=== PATIENT | male | born 1945 | race Caucasian/White ===

== ENCOUNTER → 2017-09-28 09:00 | Outpatient (CLI) | payer MEDICARE, SELFPAY ==
--- NOTE | 2017-09-28 09:04 | RDU_ITS ---
Reason For Study: HYPERTENSION Right Renal Artery Left Renal Artery Right renal artery ostium 98.7/20.1 Left renal artery ostium 92.1/22.8 RSV/EDV. PSV/EDV. Right renal artery proximal Left renal artery proximal PSV/EDV 118.0/25.5 PSV/EDV. 124.0/24.6 . Right renal artery mid 118.0/20.1 Left renal artery mid 118.0/24.6 PSV/EDV. PSV/EDV . Right renal artery distal Left renal artery distal 104.0/21.0 103.0/20.2 PSV/EDV. PSV/EDV. Right Renal Parenchyma Left Renal Parenchyma Upper Pole Medula 37.8/10.9 Left upper pole medulla 34.2/6.4 PSV/EDV. PSV/EDV . Right upper pole medulla EDR .29 . Left upper pole medulla EDR .19 . Right upper pole medulla R.I. .71 . Left upper pole medulla R.I. .81 . Upper Juan Cortx 29.3/7.3 PSV/EDV. UP Cortex 17.2/3.7 PSV/EDV. Right upper pole cortex EDR .25 . Left upper pole cortex EDR .22 . Right upper pole cortex R.I. .75 . Left upper pole cortex R.I. .78 . Right lower Pole medulla 35.1/6.4 Left lower Pole medulla 23.1/5.7 PSV/EDV . PSV/EDV . Right lower pole medulla EDR .18 . Left lower pole medulla EDR .25 . Right lower pole medulla R.I. .82 . Left lower pole medulla R.I. .75 . Lower Pole Cortex 17.7/5.2 PSV/EDV. Lower Pole Cortx 16.1/4.3 PSV/EDV. Right lower pole cortex EDR .29 . Left lower pole cortex EDR .27 . Right lower pole cortex R.I. .71 . Left lower pole cortex R.I. .74 . Right Renal Hilar Left Renal Hilar Right Hilar avg 44.6/9.5 PSV/EDV. LT Hilar avg 57.5/9.1 PSV/EDV . Right hilar acceleration time 51 Left hilar acceleration time 59 m/sec. m/sec. Right Renal Dimensions Left Renal Dimensions Right kidney size 10.8 cm . Left kidney size 11.2 cm . Right cortical dimension 1.6 cm . Left cortical dimension 1.4 cm . Cyst noted upper pole 3.2 x 2.9 cm. Aorta Proximal abdominal aorta 1.7 X 1.7 cm . Distal abdominal aorta 1.3 X 1.3 cm . Proximal abdominal aorta peak systolic velocity is 109.0 cm/sec . Distal abdominal aorta peak systolic velocity is 98.5 cm/sec . Interpretation Summary Dimensions of the intra-abdominal aorta appear normal, without evidence of aneurysmal dilatation. Renal artery velocities are bilaterally normal. Acceleration times are normal bilaterally. There is no evidence of hemodynamically significant renal artery stenosis on either side. Renovascular resistance appears to be bilaterally elevated . The right cortical dimension is increased. The left cortical dimension is normal. Kidneys appear normal in size bilaterally. A cystic structure is noted in the upper pole of the left kidney, measuring 3.2 cm x 2.9 cm. Clinical correlation is advised. Ordering Physician: Cady Diaz Referring Physician: Cady Diaz Performed By: Monica Young RVT
== END ==
PROVIDERS: Family Provider Internal Medicine; PCP Internal Medicine; Visit Provider Internal Medicine
DX: I10 Essential (primary) hypertension (principal)
CPT/HCPCS: 93975

== ENCOUNTER → 2017-10-17 13:38 | Outpatient (CLI) | payer MEDICARE, SELFPAY ==
--- NOTE | 2017-10-17 13:43 | US_ITS ---
STUDY: RENAL ULTRASOUND - COMPLETE REASON FOR EXAM: Male, 72 years old. Evaluation of left renal cyst. TECHNIQUE: Ultrasound evaluation of the kidneys was performed with real-time and static guerra-scale imaging. COMPARISON: None. FINDINGS: RIGHT KIDNEY: Normal location of the right kidney, which is normal in size. The right kidney measures 11.0 x 5.8 x 5.6 cm. There is a normal cortex of the right kidney. The renal cortex measures 1.7 cm. There is no right renal mass or cyst. Multiple echogenic foci of the right kidney. There is no right hydronephrosis. DISTAL RIGHT URETER: There is non-visualization of the distal right ureter. There is no demonstrated right ureterovesical junction calculus. There is a visualized right ureteral jet. LEFT KIDNEY: Normal location of the left kidney, which is normal in size. The left kidney measures 11.8 x 6.1 x 5.9 cm. There is a normal cortex of the left kidney. The renal cortex measures 1.7 cm. 2.9 x 2.4 x 3.2 cm simple cyst of the left kidney. Multiple echogenic foci. There is no left hydronephrosis. BLADDER: The distended urinary bladder has a volume of 366 ml. There is a normal wall thickness of the distended urinary bladder. There is no demonstrated mass within the urinary bladder. There are no demonstrated bladder calculi. US/Kidney and Bladder IMPRESSION: Normal size of the kidneys bilaterally. Negative for hydronephrosis. 2.9 x 2.4 x 3.2 cm simple cyst of the left kidney. Multiple echogenic foci bilaterally potential renal stones versus vascular calcifications. Electronically Signed: Anahi Monterroso MD at 22:19 EST , Service support ,
== END ==
PROVIDERS: Family Provider Internal Medicine; PCP Internal Medicine; Visit Provider Urology
DX: N28.1 Cyst of kidney, acquired (principal)
CPT/HCPCS: 76770

== ENCOUNTER → 2020-09-29 08:11 | Outpatient (CLI) | payer MEDICARE, SELFPAY ==
--- NOTE | 2020-09-29 08:16 | CDU_ITS ---
Reason For Study: Bruit Rt. Velocities/BP Lt. Velocities/BP Prox CCA 128.4/15.2 cm/sec. Prox CCA 84.9/13.5 cm/sec. Mid CCA 56.9/12.6 cm/sec. Mid CCA 75/14.6 cm/sec. Dist CCA 64.2/16.3 cm/sec. Dist CCA 75/17.9 cm/sec. Prox ICA 59.7/13.5 cm/sec. Prox ICA 59.7/20.1 cm/sec. Mid ICA 82.7/26.7 cm/sec. Mid ICA 92.6/23.4 cm/sec. Dist ICA 67.8/21.4 cm/sec. Dist ICA 83.9/28.9 cm/sec. Rt. ICA/CCA = 1.3. Lt. ICA/CCA = 1.2. Prox ECA 81.4/9 cm/sec. Prox ECA 81.6/8 cm/sec. Rt. Vert. 59.7/17.9 cm/sec. Lt. Vert. 60.8/12.4 cm/sec. Right Extracranial There is intimal thickening but no significant atherosclerotic plaque noted in the right common carotid artery. There is heterogeneous, irregular atherosclerotic plaque noted in the right internal carotid artery. The atherosclerotic plaque causes acoustic shadowing. There is intimal thickening but no significant atherosclerotic plaque noted in the right external carotid artery. Antegrade flow is noted in the right vertebral artery. Left Extracranial There is intimal thickening but no significant atherosclerotic plaque noted in the left common carotid artery. There is heterogeneous, irregular atherosclerotic plaque noted in the left internal carotid artery. The atherosclerotic plaque causes acoustic shadowing. There is intimal thickening but no significant atherosclerotic plaque noted in the left external carotid artery. Antegrade flow is noted in the left vertebral artery. Procedure Carotid Duplex 45665. This is a Carotid Duplex examination using B-mode, color flow and specral Doppler. Exam performed in department. Interpretation Summary Mild (<50%) stenosis right extracranial internal carotid. Mild (<50%) stenosis left extracranial internal carotid. Flow within the vertebral arteries is antegrade bilaterally. Ordering Physician: Cady Diaz Referring Physician: Cady Diaz M.D. Performed By: Kristine Muñoz RVT
--- NOTE | 2020-09-29 08:16 | ECHOCS_ITS ---
Reason For Study: Aortic Stenosis Procedure This was a 2D Doppler, Color Flow transthoracic echocardiogram. The study was technically difficult. Contrast injection was performed. Exam performed in department. Left Ventricle Normal LV size. Left ventricular systolic function is normal. The estimated ejection fraction is 65 %. No evidence for diastolic dysfunction. No regional wall motion abnormalities noted. Right Ventricle Normal RV size. Normal systolic function. Atria The left atrium is mildly enlarged. Normal right atrium. No doppler evidence for ASD. Mitral Valve There is no mitral annular calcification. Normal mitral valve. Trivial mitral valve insufficiency. Tricuspid Valve Normal tricuspid valve. Trivial tricuspid valve insufficiency. Right ventricular systolic pressure estimated to be 32 mmHg. Aortic Valve 2D echocardiographic images demonstrate a moderately to severely diffusely thickened and calcified and partially restricted aortic valve with a possible fused raphae, thus, a bicuspid aortic valve cannot necessarily be excluded. Severe aortic stenosis. Trivial aortic valve insufficiency. Pulmonic Valve The pulmonic valve is not well visualized. Trivial eccentric pulmonic valve insufficiency. Great Vessels Normal sized aortic root. Pericardium/Pleural No pericardial effusion. Medication 22 gauge I.V. with prn adaptor inserted into left arm. Diluted definity 2ml given slow IV push to enhance endocardial definition. MMode/2D Measurements & Calculations LVIDd: 4.7 cm IVSd: 1.3 cm LVOT diam: 2.0 cm LVIDs: 2.7 cm LVPWd: 1.1 cm RVDd: 3.3 cm FS: 42.3 % LVOT area: 3.0 cm2 Ao root diam: 3.1 cm LAV(MOD-bp): 42.7 ml LA A4 area: 15.1 cm2 LAV(MOD-bp) Indexed: 23.2 ml/m2 LAV(MOD-sp2): 43.4 ml LAV(MOD-sp4): 37.6 ml RA A4 area: 10.8 cm2 Time Measurements MV dec time: 0.30 sec Doppler Measurements & Calculations MV E max samuel: 63.1 cm/sec Lat Peak E' Samuel: 6.5 cm/sec Med Peak E' Samuel: 5.4 cm/sec MV A max samuel: 97.6 cm/sec E/E' lat: 9.8 E/E' med: 11.8 MV E/A: 0.65 MV V2 max: 99.0 cm/sec MV P1/2t max samuel: 69.9 cm/sec Ao V2 max: 449.5 cm/sec MV max P.9 mmHg MV P1/2t: 85.5 msec Ao max P.9 mmHg MV V2 mean: 48.1 cm/sec MV dec slope: 239.3 cm/sec2 Ao V2 mean: 318.8 cm/sec MV mean P.1 mmHg Ao mean P.6 mmHg MV V2 VTI: 25.1 cm MVA(P1/2t): 2.6 cm2 Ao V2 VTI: 115.2 cm MVA(VTI): 2.3 cm2 GEOVANI(I,D): 0.51 cm2 GEOVANI(V,D): 0.50 cm2 AI max samuel: 432.4 cm/sec LV V1 max: 73.2 cm/sec SV(LVOT): 58.6 ml AI max P.8 mmHg LV V1 max P.1 mmHg AI dec slope: 202.8 cm/sec2 LV V1 mean P.1 mmHg AI P1/2t: 624.4 msec LV V1 mean: 47.4 cm/sec LV V1 VTI: 19.3 cm PA V2 max: 110.7 cm/sec TR max samuel: 270.1 cm/sec TR max P.2 mmHg Interpretation Summary The study was technically difficult. Contrast injection was performed. Left ventricular systolic function is normal. The estimated ejection fraction is 65 %. The left atrium is mildly enlarged. Trivial mitral valve insufficiency. Trivial tricuspid valve insufficiency. 2D echocardiographic images demonstrate a moderately to severely diffusely thickened and calcified and partially restricted aortic valve with a possible fused raphae, thus, a bicuspid aortic valve cannot necessarily be excluded. Severe aortic stenosis. Trivial eccentric pulmonic valve insufficiency. Right ventricular systolic pressure estimated to be 32 mmHg. No evidence for diastolic dysfunction. Ordering Physician: Cady Diaz Referring Physician: Cady Diaz M.D. Performed By: Justyn Gaines RCS
== END ==
PROVIDERS: PCP Internal Medicine; Visit Provider Internal Medicine
DX: I35.0 Nonrheumatic aortic (valve) stenosis (principal); R09.89 Other specified symptoms and signs involving the circulatory and respiratory systems
CPT/HCPCS: 93306; 93880; Q9957; A4216; C8929

== ENCOUNTER 2020-11-23 08:19 | Day surgery (SDC) | payer MEDICARE, SELFPAY ==
[2020-11-18 13:02] VITALS: BMI 29.0
--- NOTE | 2020-11-18 14:23 | RAD_ITS ---
STUDY: X-RAY CHEST REASON FOR EXAM: Male, 75 years old. shortness of breath TECHNIQUE: PA and lateral views of the chest. COMPARISON: 10/02/2016 FINDINGS: The lungs are clear and expanded. There is no demonstrated pleural abnormality. Normal size heart. Normal mediastinum and mil[place]. Normal visualized pulmonary arteries. Normal visualized aortic arch and descending thoracic aorta. There are diffuse degenerative changes of the visualized thoracic spine. Normal visualized ribs, clavicles, and shoulders. There is no demonstrated abnormality of the visualized soft tissue structures of the upper abdomen. RAD/Chest PA and Lateral IMPRESSION: No acute cardiopulmonary process. Electronically Signed: Scottie Goddard MD ([place]) at 17:40 EDT , Service support ,
[2020-11-18 15:11] LABS: Absolute Lymphocyte Count 1.32 X10^3/uL (0.83-4.51); Absolute Neutrophil Count 4.2 X10^3/uL (2.0-7.7); Basophil# 0.04 X10^3/uL; Basophil% 0.6 % (0-1); Eosinophil# 0.09 X10^3/uL; Eosinophils% 1.4 % (0-5); Hematocrit 44.4 % (40-54); Hemoglobin 14.6 g/dL (13.0-16.5); Lymphocyte # 1.32 X10^3/ul (4.0); Lymphocyte % 21.2 % (19-41); Mean Corp Hgb Conc 32.9 g/dL (32-36); Mean Corpuscular Hgb 29.4 pg (27.0-32.0); Mean Corpuscular Volume 89.5 fL (80-94); Mean Platelet Vol. 10.5 fl (6.2-12.0); Monocyte# 0.52 X10^3/uL; Monocyte% 8.3 % (0-10); NRBC Flagged by Analyzer 0 % (0-5); Neutrophil # 4.24 X10^3/uL (2.7-7.7); Platelet Count 209 K/mm3 (150-450); RBC Distribution Width CV 13.2 % (11.6-14.6); RBC Distribution Width SD 42.8 fl (35.1-43.9); Red Blood Count 4.96 M/mm3 (4.6-6.2); White Blood Count 6.2 K/mm3 (4.4-11.0)
[2020-11-18 15:31] LABS: Partial Thromboplast Time 26.3 Seconds (24.1-36.2); Prothrombin Time (Protime)PT. 12.3 SECONDS (11.7-14.9)
[2020-11-18 15:53] LABS: Anion Gap 7 (5-15); BUN 21 mg/dL (7-18); BUN/Creat Ratio 18.8 RATIO (10-20); Calcium,Total 9.3 mg/dL (8.5-10.1); Chloride 102 mmol/L (98-107); Creatinine, Serum 1.12 mg/dL (0.70-1.30); EST Glomerular Filtration Rate 68 mL/min (>60); Est Glom Filt Rate - Afr Amer 82 mL/min (>60); Glucose 97 mg/dL (74-106); Potassium 3.8 mmol/L (3.5-5.1); Sodium Level 138 mmol/L (136-145)
[2020-11-22 09:52] VITALS: BMI 29.0
--- NOTE | 2020-11-22 17:47 | HP.PCM_ITS ---
Problem List (1) Nonrheumatic aortic (valve) stenosis Status: Chronic Comment: Severe per ECHO 09/29/20 (2) Mixed hyperlipidemia Status: Chronic (3) Essential hypertension Status: Chronic (4) Dyspnea on exertion Status: Acute History and Physical Date of Admission: 11/23/20 [facility] [address] [place] [address] OFFICE VISIT Date of Service: 11/18/20 MR#: [id number] Acct: [id number] Name: MIGUELINA ESPOSITO Jr. Rep #: [id number] : 1945 Provider: Dr. Nigel Kendrick MD Age/Sex: 75/M Location: [facility] Status: Signed HPI HPI History of Present Illness Surgical H&P: Yes Details: This is a 75-year-old white male who is referred for evaluation of shortness of breath/dyspnea on exertion and severe aortic valve stenosis. He has a history of underlying carotid artery disease-mild, hyperlipidemia, and hypertension. He states for some time now he has been progressively short of breath and dyspneic with exertion. He will stop and rest and feel better. He has not had associated chest discomfort nor has he had any obvious evidence of orthopnea or PND or peripheral pitting edema. There has been no near syncope or syncope. He had an ECG by his PCP in September this year. It demonstrated sinus rhythm with left axis deviation with a possible left anterior fascicular block and poor R wave progression as well as the appearance of nonspecific ST segment abnormality. He had a carotid artery duplex study performed in September of this year. The results are as noted below. He had a transthoracic echocardiogram performed in September of this year as well. The results are as noted below. Of note he has had remote chest CT scans and renal artery duplex studies. The results of the studies are noted below. Intake Vital Signs 11/18/20 BP 156/78 H 11/18/20 Blood Pressure Location Rt brachial 11/18/20 Position Sitting 11/18/20 Height 5 ft 6 in 11/18/20 Weight: 180 lb 11/18/20 BMI 29.0 11/18/20 BP 166/78 H 11/18/20 Blood Pressure Location Lt brachial 11/18/20 Position Sitting 11/18/20 Respiration 16 11/18/20 Pulse 68 11/18/20 Pulse Source Auscultation Intake Visit Reasons: SOB on exertion/ Ref. Joe Brokerage Manager Required: No Accompanied by: None Is patient in pain?: No Allergies pravastatin Adverse Reaction (Intermediate, Verified 11/18/20 13:12) muscle pains rosuvastatin Adverse Reaction (Intermediate, Verified 11/18/20 13:12) muscle pains simvastatin Adverse Reaction (Intermediate, Verified 11/18/20 13:12) muscle pains Medications amlodipine 5 mg tablet 5 mg PO DAILY 11/01/20 [History Confirmed 11/18/20] aspirin 325 mg tablet 325 mg PO DAILY 11/01/20 [History Confirmed 11/18/20] cholecalciferol (vitamin D3) 50 mcg (2,000 unit) tablet 50 mcg PO DAILY 11/01/20 [History Confirmed 11/18/20] hydrochlorothiazide 12.5 mg tablet 12.5 mg PO DAILY 11/01/20 [History Confirmed 11/18/20] loratadine 10 mg tablet 10 mg PO DAILY PRN 11/01/20 [History Confirmed 11/18/20] losartan 100 mg tablet 100 mg PO DAILY 11/01/20 [History Confirmed 11/18/20] metoprolol tartrate 25 mg tablet 25 mg PO BID 11/01/20 [History Confirmed 11/18/20] atorvastatin 40 mg tablet 40 mg PO QHS 11/18/20 [History Confirmed 11/18/20] citalopram 10 mg tablet 10 mg PO QHS tablet 11/18/20 [History Confirmed 11/18/20] tamsulosin 0.4 mg capsule 0.4 mg PO QHS 11/18/20 [History Confirmed 11/18/20] zinc 50 mg tablet 50 mg PO DAILY 11/18/20 [History Confirmed 11/18/20] Ejection fraction %: 65 to 70 [facility] Medical History Dyspnea on exertion (Acute) Bilateral carotid bruits (Acute) Bilateral carotid artery stenosis (Chronic) Nonrheumatic aortic (valve) stenosis (Chronic) Mixed hyperlipidemia (Chronic) Essential hypertension (Chronic) Cyst of left kidney (Acute) BPH (benign prostatic hyperplasia) (Chronic) Gout (Chronic) Community acquired pneumonia (Resolved) Surgical History salivary gland removal (Resolved) Family History Father Myocardial infarction, Onset Age: 69 Mother Cancer Breast Social History (Updated 11/18/20 @ 13:[address] Nigel Kendrick MD) Smoking Status: Never smoker alcohol intake: current details: 2 beers daily substance use type: does not use caffeine: Yes Type: coffee Number of servings: 6 ROS Const Const: Positive for fatigue, weakness and daytime sleepiness; negative for headache(s), frequent falls, difficulty sleeping or excessive sweating Eyes Eyes: Negative for loss of peripheral vision, transient loss of vision, blurry vision, double vision or tunnel vision ENT ENT: Negative for headache(s), dizziness, Nosebleed/epistaxis or balance problems Cardio Chest Pain: No Palpitations: No Edema: Bilateral (Resolved with HCTZ) Muscle aches with walking: None Resp Respiratory: Positive for SOB with activity; negative for SOB at rest, SOB orthopnea\SOB lying down, Cough or paroxysmal nocturnal dyspnea GI GI: Negative nausea, vomiting, heartburn or black,tarry stools : Negative for hematuria Musc Musc: Negative for muscle aches/ myalgia, muscle weakness, joint pain or balance problems Skin Skin: Negative non-healing lesions, rash or unusual bruising Neuro Neuro: Positive for lightheadedness and weakness; negative for dizziness, near syncope, syncope, frequent falls, headache(s), blurry vision, double vision or lack of coordination Harish Hematologic/Lymphatic: Negative for easy bleeding or easy bruising Endo Endo: Positive for fatigue; negative for excessive sweating or increased thirst/drinking Psych Psych: Negative for anxiety or depression Allergy Allergy/Immunology: Negative for hives, Negative for rash Cardiology Exam Const Appearance: cooperative, healthy appearing, comfortable, no acute distress, well developed and well groomed Nutritional Appearance: average body habitus Orientation: alert, awake and oriented x3 Head Head: normal to inspection, normocephalic and atraumatic Ears: hearing grossly normal bilaterally Nose: external nose normal Face and Sinus: face symmetric Eyes General: appearance normal, both eyes and all related structures Eyelids: eyelids normal Conjunctivae: conjunctivae normal Pupils: PERRL EOM: EOM intact bilaterally Neck Neck: normal visual inspection and full ROM Carotids: delayed carotid upstroke Chest Chest inspection: normal inspection of the chest, symmetric chest movement and normal respiratory effort Auscultation: Bilateral: Clear to Auscultation Cardio Palpation: normal PMI Rate: regular rate Rhythm: regular rhythm Heart sounds: S1 normal and diminished A2 Murmur: Grade 3/6, harsh and crescendo-decrescendo GI GI: normal to inspection, soft and bowel sounds present Neuro General: alert, awake, oriented x3 and moves all extremities Skin Skin: no rashes or lesions noted Extremities Pulses: Normal: Right Radial Pulse, Left Radial Pulse Lower Extremity Edema: None: Bilateral Psych Psychological: normal affect Assessment & Plan 1. Nonrheumatic aortic (valve) stenosis I35.0 Severe per ECHO 09/29/20 Plan At the present time he does have what appears to be severe aortic valve stenosis based upon his echocardiographic studies. This can contribute to his shortness of breath/dyspnea. At the present time it was felt he should be further evaluated for his severe aortic valve stenosis in preparation for a tertiary care center evaluation for aortic valve replacement. This evaluation would include a chest x-ray as well as a diagnostic cardiac catheterization to evaluate for any obvious angiographically significant CAD that would contribute to his symptoms and alter the way his aortic valve is replaced. Hopefully if he does not have any angiographically significant CAD he could be referred for a TAVR procedure. Orders Orders: 12 Lead EKG performed by BMS Today Left Heart Cath/COR/LV Percut Today Basic Metabolic Profile (BMP) Today Partial Thromboplast Time Today Prothrombin Time w/INR Today CBC W/Diff, Automated Today Chest PA and Lateral Today 2. Bilateral carotid artery stenosis I65.23 Mild per duplex study 09/29/20 Plan He does have an element of carotid artery stenosis. He will need to continue risk factor evaluation care as deemed appropriate. Orders Orders: 12 Lead EKG performed by BMS Today Left Heart Cath/COR/LV Percut Today Basic Metabolic Profile (BMP) Today Partial Thromboplast Time Today Prothrombin Time w/INR Today CBC W/Diff, Automated Today Chest PA and Lateral Today 3. Mixed hyperlipidemia E78.2 Plan He does have an element of hyperlipidemia. He will continue medical management. Orders Orders: 12 Lead EKG performed by BMS Today Left Heart Cath/COR/LV Percut Today Basic Metabolic Profile (BMP) Today Partial Thromboplast Time Today Prothrombin Time w/INR Today CBC W/Diff, Automated Today Chest PA and Lateral Today 4. Essential hypertension I10 Plan He has blood pressure during his PCP visit in September of this year appeared to be reasonably well controlled with a blood pressure of 138/80 mmHg. He states is elevated today because he is sitting in this office today. He notes usually his blood pressure is much better controlled. Orders Orders: 12 Lead EKG performed by BMS Today Left Heart Cath/COR/LV Percut Today Basic Metabolic Profile (BMP) Today Partial Thromboplast Time Today Prothrombin Time w/INR Today CBC W/Diff, Automated Today Chest PA and Lateral Today 5. Dyspnea on exertion R06.00 Plan His shortness of breath/dyspnea may be related to his aortic valve stenosis. However again he needs to be evaluated for any obvious underlying CAD as well as any obvious pulmonary related issues that would contribute to such symptoms and findings. Thus he will proceed with a evaluation as noted. Orders Orders: 12 Lead EKG performed by BMS Today Left Heart Cath/COR/LV Percut Today Basic Metabolic Profile (BMP) Today Partial Thromboplast Time Today Prothrombin Time w/INR Today CBC W/Diff, Automated Today Chest PA and Lateral Today Plan Detail Additional Comments The above was discussed with the patient. The cardiac catheterization procedure and risks were discussed with the patient. He was agreeable to this approach. Follow Up 3 Months (PFM) Coding Level of Care Code Off vis,new,level 5 Diagnoses Nonrheumatic aortic (valve) stenosis I35.0 Bilateral carotid artery stenosis I65.23 Mixed hyperlipidemia E78.2 Essential hypertension I10 Dyspnea on exertion R06.00 Coding Level of Care Code Off vis,new,level 5 Diagnoses Nonrheumatic aortic (valve) stenosis I35.0 Bilateral carotid artery stenosis I65.23 Mixed hyperlipidemia E78.2 Essential hypertension I10 Dyspnea on exertion R06.00 Supplemental Info Supplemental Information Echocardiogram: 09-29-2020 Interpretation Summary The study was technically difficult. Contrast injection was performed. Left ventricular systolic function is normal. The estimated ejection fraction is 65 %. The left atrium is mildly enlarged. Trivial mitral valve insufficiency. Trivial tricuspid valve insufficiency. 2D echocardiographic images demonstrate a moderately to severely diffusely thickened and calcified and partially restricted aortic valve with a possible fused raphae, thus, a bicuspid aortic valve cannot necessarily be excluded. Severe aortic stenosis. Trivial eccentric pulmonic valve insufficiency. Right ventricular systolic pressure estimated to be 32 mmHg. No evidence for diastolic dysfunction. Carotid artery duplex study: 09/29/2020 Interpretation Summary Mild (<50%) stenosis right extracranial internal carotid. Mild (<50%) stenosis left extracranial internal carotid. Flow within the vertebral arteries is antegrade bilaterally. Chest CT scan: 08/23/2016 IMPRESSION: 1. No evidence of pulmonary embolus. 2. No aortic dissection or aneurysm. 3. Right lower lobe consolidating infiltrate. Electronically Signed: Aldair Dockery DO at 14:36 EST Renal artery duplex study: 09/28/2017 Interpretation Summary Dimensions of the intra-abdominal aorta appear normal, without evidence of aneurysmal dilatation. Renal artery velocities are bilaterally normal. Acceleration times are normal bilaterally. There is no evidence of hemodynamically significant renal artery stenosis on either side. Renovascular resistance appears to be bilaterally elevated . The right cortical dimension is increased. The left cortical dimension is normal. Kidneys appear normal in size bilaterally. A cystic structure is noted in the upper pole of the left kidney, measuring 3.2 cm x 2.9 cm. Clinical correlation is advised.Interpretation Summary Dimensions of the intra-abdominal aorta appear normal, without evidence of aneurysmal dilatation. Renal artery velocities are bilaterally normal. Acceleration times are normal bilaterally. There is no evidence of hemodynamically significant renal artery stenosis on either side. Renovascular resistance appears to be bilaterally elevated . The right cortical dimension is increased. The left cortical dimension is normal. Kidneys appear normal in size bilaterally. A cystic structure is noted in the upper pole of the left kidney, measuring 3.2 cm x 2.9 cm. Clinical correlation is advised. Diagnostics Echocardiogram 09/29/20 Chest X-Ray 10/02/16 COVID (Procedure Consent) Procedure Criteria Procedure Criteria: Yes Elective The surgeon/proceduralist and patient have discussed in detail the risk of exposure to and/or potential harm posed by the COVID-19 virus with having a surgery/procedure at this time versus the risk of? delaying the surgery/procedure. It is not possible to know either the risk of delaying the surgery or procedure or chance of getting an infection with perfect accuracy, but a joint decision was made between the patient and the surgeon/proceduralist ?to proceed at this time with the scheduled surgery/procedure as indicated on the consent form. 11/18/20 [id number] <Electronically signed by Nigel hunter MD> Date _ Nigel Kendrick MD I have re-examined the patient. There are no clinical changes since date of exam. I have re-examined the patient. There are no clinical changes since date of exam. Procedure Criteria Procedure Type: Elective COVID Risk Discussion: The surgeon/proceduralist and patient have discussed in detail the risk of exposure to and/or potential harm posed by the COVID-19 virus with having a surgery/procedure at this time versus the risk of delaying the surgery/proced ure. It is not possible to know either the risk of delaying the surgery or procedure or chance of getting an infection with perfect accuracy, but a joint decision was made between the patient and the surgeon/proceduralist to proceed at this time with the scheduled surgery/procedure as indicated on the consent form.
--- NOTE | 2020-11-23 11:26 | CL.D_ITS ---
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 The risks and benefits of the procedure as well as a full d escription of our services here and current unavailability of surgical backup were fully explained to the patient and/or their significant other prior to the catheterization. The Timeout was completed, verifying the correct patient and procedure. The patient's procedural site was prepped and draped in the usual fashion. Local anesthetic was given subcutaneously to right radial region with Lidocaine 2% . Using a modified Seldinger technique, arterial access was obtained via the right radial artery, a 6 Fr sheath was inserted. Left Coronary Artery selective angiography was performed in multiple views u sing a 5 Fr. 4.0 [place] catheter. Right Coronary Artery selective angiography was then performed in mu ltiple views using a 5 Fr. 3DRC (Franco) catheter.The arterial sheath was pulled and a TR Band was applied for hemostasis CORONARY ANGIOGRAPHY DOMINANCE: Right Dominant LEFT HEART ASSESSMENT Left Ventricular Ejection Fraction: Not assessed LEFT MAIN: Angiographically normal LEFT ANTERIOR DESCENDING ARTERY: Angiographically normal CIRCUMFLEX ARTERY: Angiographically normal RIGHT CORONARY ARTERY: Mild luminal irregularities PROX RCA: 25 % Stenosis VALVE FINDINGS: Aortic Valve Calcification - severe COMPLICATIONS No Complications PROCEDURE MEDICATIONS Fentanyl 50 mcg IV Versed 1 mg IV Fentanyl 50 mcg IV Versed 1 mg IV Oxygen: 2 L/min via nasal cannula Heparin diluted in 23cc Heparinized saline. Patient given 10cc IA of this solution. 11/23/2020 10:25:0 7 Verapamil 2.5mg, Ntg 100mcgs, 2000 units of Heparin diluted in 23cc Heparinized saline. Patient give n 10cc IA of this solution. 11/23/2020 10:25:07 SUMMARY OF HEMODYNAMIC DATA Time AIR REST ECG 08:40:49 ECG 10:06:24 AO 121/67 (91) SA 10:29:07 AO 131/71 (98) 10:49:31 Signed By Nigel Kendrick MD On 11/23/2020 11:25:21 Nigel Kendrick MD
== END 2020-11-23 13:08 | disposition home or self-care (01) ==
PROVIDERS: PCP Internal Medicine; Referring Provider Internal Medicine Cardiovascular Disease; Visit Provider Internal Medicine Cardiovascular Disease
DX: I25.10 Atherosclerotic heart disease of native coronary artery without angina pectoris (principal); I70.0 Atherosclerosis of aorta; I35.0 Nonrheumatic aortic (valve) stenosis; I65.23 Occlusion and stenosis of bilateral carotid arteries; R06.00 Dyspnea, unspecified; E78.2 Mixed hyperlipidemia; I10 Essential (primary) hypertension; Z79.899 Other long term (current) drug therapy
CPT/HCPCS: 36415; 71046; 80048; 85025; 85610; 85730; 93454; 99152; 99153; J7040; Q9967; C1769; C1894

== ENCOUNTER 2021-09-19 12:05 | Outpatient (CLI) | payer MEDICARE, SELFPAY ==
[2021-09-19 12:31] LABS: Absolute Neutrophil Count 4.5 X10^3/uL (2.0-7.7); Basophil# 0.02 X10^3/uL; Basophil% 0.3 % (0-1); Eosinophil# 0.03 X10^3/uL; Eosinophils% 0.5 % (0-5); Hematocrit 37.8 % (40-54); Hemoglobin 13.6 g/dL (13.0-16.5); Lymphocyte % 13.4 % (19-41); Mean Corpuscular Hgb 30.8 pg (27.0-32.0); Mean Corpuscular Volume 85.5 fL (80-94); Mean Platelet Vol. 11.3 fl (6.2-12.0); Monocyte# 0.63 X10^3/uL; Monocyte% 10.6 % (0-10); NRBC Flagged by Analyzer 0 % (0-5); Neutrophil # 4.45 X10^3/uL (2.7-7.7); Neutrophil % 74.7 % (47-70); Platelet Count 150 K/mm3 (150-450); RBC Distribution Width CV 13.7 % (11.6-14.6); RBC Distribution Width SD 41.9 fl (35.1-43.9); Red Blood Count 4.42 M/mm3 (4.6-6.2)
[2021-09-19 13:01] LABS: ALB/GLOB Ratio 0.6 RATIO (0.9-2.4); AST(SGOT) 59 U/L (15-37); Alanine Aminotransfer ALT/SGPT 60 U/L (16-61); Albumin, Serum 2.8 g/dL (3.2-5.0); Alkaline Phosphatase 59 U/L (45-117); Anion Gap 7 (5-15); BUN 12 mg/dL (7-18); BUN/Creat Ratio 10.7 RATIO (10-20); Calcium,Total 8.4 mg/dL (8.5-10.1); Chloride 97 mmol/L (98-107); Creatinine, Serum 1.12 mg/dL (0.70-1.30); EST Glomerular Filtration Rate 67 mL/min (>60); Est Glom Filt Rate - Afr Amer 81 mL/min (>60); Globulin 4.4 g/dL (2.2-4.2); Glucose 105 mg/dL (74-106); Potassium 3.4 mmol/L (3.5-5.1); Protein, Total 7.2 g/dL (6.4-8.2); Sodium Level 133 mmol/L (136-145); T4 Free Direct 1.37 ng/dL (0.76-1.46); Thyroid Stim Hormone (TSH) 1.64 uIU/mL (0.358-3.74); Troponin-I HS 13 pg/mL (3.0-78.0)
== END 2021-09-19 23:59 | disposition short-term general hospital (02) ==
LOC: LABSPEC 12:07
PROVIDERS: PCP Internal Medicine; Visit Provider Internal Medicine
DX: R53.83 Other fatigue (principal)
CPT/HCPCS: 80053; 84439; 84443; 84484; 85025

== ENCOUNTER → 2022-05-09 | Outpatient (CLI) | payer MEDICARE, SELFPAY ==
--- NOTE | 2022-05-09 13:28 | ECHOD_ITS ---
Reason For Study: VALVE REPLACEMENT EVAL Procedure This was a 2D Doppler, Color Flow transthoracic echocardiogram. The exam was of adequate technical quality. Exam performed in department. Left Ventricle Normal LV size. Left ventricular systolic function is normal. The estimated ejection fraction is 70 %. Diastolic function is indeterminate. No regional wall motion abnormalities noted. Right Ventricle Normal RV size. Normal systolic function. Atria The left atrium is mildly enlarged. Normal right atrium. No doppler evidence for ASD. Mitral Valve There is no mitral annular calcification. Anterior leaflet diffuse mitral valve thickening. Mild- Moderate (1-2+) mitral valve insufficiency. Tricuspid Valve Normal tricuspid valve. Mild eccentric tricuspid valve insufficiency. Right ventricular systolic pressure estimated to be 33 mmHg. Aortic Valve Stable appearing bioprosthetic aortic valve apparatus. Trivial transvalvular insufficiency of the aortic valve. Pulmonic Valve The pulmonic valve is not well visualized. Great Vessels Normal sized aortic root. Pericardium/Pleural No pericardial effusion. MMode/2D Measurements & Calculations LVIDd: 4.2 cm IVSd: 1.1 cm LVOT diam: 2.0 cm LVIDs: 2.6 cm LVPWd: 1.2 cm LVOT area: 3.0 cm2 RVDd: 3.6 cm FS: 39.8 % Ao root diam: 3.0 cm LAV(MOD-bp): 61.1 ml LVAd ap4: 24.2 cm2 LAV(MOD-bp) Indexed: 32.7 ml/m2 LVLd ap4: 7.5 cm LAV(MOD-sp2): 72.9 ml EDV(MOD-sp4): 64.8 ml LAV(MOD-sp4): 47.1 ml EDV(sp4-el): 66.5 ml LVAs ap4: 12.6 cm2 LVLs ap4: 6.5 cm ESV(MOD-sp4): 22.1 ml ESV(sp4-el): 20.9 ml EF(MOD-sp4): 66.0 % EF(sp4-el): 68.7 % SV(MOD-sp4): 42.8 ml SV(sp4-el): 45.7 ml LA A4 area: 19.1 cm2 LA dimension(2D): 4.5 cm RA A4 area: 12.6 cm2 Time Measurements MV dec time: 0.20 sec Doppler Measurements & Calculations MV E max samuel: 83.1 cm/sec Lat Peak E' Samuel: 10.0 cm/sec Med Peak E' Samuel: 4.7 cm/sec MV A max samuel: 70.5 cm/sec E/E' lat: 8.3 E/E' med: 17.6 MV E/A: 1.2 MV V2 max: 84.5 cm/sec Ao V2 max: 206.0 cm/sec MV max P.9 mmHg MV dec slope: 420.6 cm/sec2 Ao max P.0 mmHg MV V2 mean: 47.5 cm/sec Ao V2 mean: 142.9 cm/sec MV mean P.1 mmHg Ao mean P.4 mmHg MV V2 VTI: 31.0 cm Ao V2 VTI: 48.9 cm MVA(VTI): 1.8 cm2 GEOVANI(I,D): 1.1 cm2 GEOVANI(V,D): 1.1 cm2 LV V1 max: 75.2 cm/sec SV(LVOT): 55.8 ml PA V2 max: 104.3 cm/sec LV V1 max P.3 mmHg PA V2 mean: 66.8 cm/sec LV V1 mean P.4 mmHg LV V1 mean: 56.4 cm/sec LV V1 VTI: 18.6 cm TR max samuel: 273.8 cm/sec TR max P.0 mmHg ECHO/Echo Complete Interpretation Summary Left ventricular systolic function is normal. The estimated ejection fraction is 70 %. The left atrium is mildly enlarged. Anterior leaflet diffuse mitral valve thickening. Mild-Moderate (1-2+) mitral valve insufficiency. Mild eccentric tricuspid valve insufficiency. Stable appearing bioprosthetic aortic valve apparatus. Trivial transvalvular insufficiency of the aortic valve. Right ventricular systolic pressure estimated to be 33 mmHg. Diastolic function is indeterminate. Ordering Physician: Nigel Kendrick Referring Physician: Cady Diaz M.D. Performed By: Kitty Santacruz RCS
== END | disposition home or self-care (01) ==
PROVIDERS: PCP Internal Medicine; Visit Provider Internal Medicine Cardiovascular Disease
DX: R06.00 Dyspnea, unspecified (principal); Z95.3 Presence of xenogenic heart valve
CPT/HCPCS: 93306

== ENCOUNTER → 2022-08-30 | Outpatient (CLI) | payer MEDICARE, SELFPAY ==
--- NOTE | 2022-08-30 13:40 | CT_ITS ---
STUDY: CT ABDOMEN AND PELVIS WITH CONTRAST REASON FOR EXAM: Male, 77 years old. Abdominal pain, acute RADIATION DOSAGE (If Supplied By Facility): CTDIvol = ( 11.77 ) mGy, DLP = ( 740.58 ) mGycm TECHNIQUE: Transaxial images were obtained from the dome of the diaphragm to the symphysis pubis with oral contrast. Oral and amp; IV Readi-CAT and amp; 100mL Isovue-300 was administered. Sagittal and coronal images were reconstructed. Individualized dose optimization techniques were used for this CT. COMPARISON: None. FINDINGS: The visualized lung bases are unremarkable. Aortic valve replacement. Coronary artery calcification. Normal liver. Normal gallbladder and extrahepatic biliary system. Normal spleen. Normal pancreas. Normal bilateral adrenal glands. Normal right kidney. There is a 3 cm cyst in the posterior medial aspect of the lower pole of the left kidney. Normal visualized stomach. Normal small intestine. There are multiple colonic diverticula consistent with diverticulosis. The appendix is visualized and appears normal. There is scattered atherosclerotic calcification of the abdominal aorta, without a demonstrated aneurysm. Normal inferior vena cava. Normal retroperitoneum. Normal urinary bladder. There is enlargement of the prostate gland. The prostate measures 5 cm x 5.1 cm. This causes indentation at the bladder base. Normal abdominal wall. There are diffuse degenerative changes of the visualized lumbar spine. 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 3 cm cyst in the posterior medial aspect of the lower pole of the left kidney Electronically Signed: Steve Larson MD at 14:32 EST ,
[2022-08-30 14:30] LABS: EGFR FINGERSTICK > 60.0000 mL/min (>60)
== END | disposition home or self-care (01) ==
LOC: CT 13:38
PROVIDERS: PCP Internal Medicine; Referring Provider Internal Medicine; Visit Provider Internal Medicine
DX: R10.9 Unspecified abdominal pain (principal)
CPT/HCPCS: 74177; Q9967

== ENCOUNTER → 2023-07-26 | Outpatient (CLI) | payer MEDICARE, SELFPAY ==
[2023-07-26 12:19] LABS: Hematocrit 43.9 % (40-54); Hemoglobin 14.5 g/dL (13.0-16.5); Mean Corpuscular Hgb 29.4 pg (27.0-32.0); Mean Platelet Vol. 11.2 fl (6.2-12.0); Platelet Count 212 K/mm3 (150-450); RBC Distribution Width CV 13.7 % (11.6-14.6); Red Blood Count 4.93 M/mm3 (4.6-6.2); White Blood Count 6.4 K/mm3 (4.4-11.0)
[2023-07-26 13:16] LABS: AST(SGOT) 36 U/L (15-37); Alanine Aminotransfer ALT/SGPT 41 U/L (16-61); Albumin, Serum 3.9 g/dL (3.2-5.0); Alkaline Phosphatase 80 U/L (45-117); Anion Gap 4 (5-15); BUN 14 mg/dL (7-18); BUN/Creat Ratio 13.2 RATIO (10-20); Calcium,Total 8.7 mg/dL (8.5-10.1); Chloride 104 mmol/L (98-107); Creatinine, Serum 1.06 mg/dL (0.70-1.30); EST Glomerular Filtration Rate 71 mL/min (>60); Est Glom Filt Rate - Afr Amer 86 mL/min (>60); Globulin 3.8 g/dL (2.2-4.2); Glucose 98 mg/dL (74-106); Protein, Total 7.7 g/dL (6.4-8.2); Sodium Level 137 mmol/L (136-145); Thyroid Stim Hormone (TSH) 2.23 uIU/mL (0.358-3.74)
== END | disposition home or self-care (01) ==
LOC: LAB 10:46
PROVIDERS: PCP Internal Medicine; Referring Provider Internal Medicine Cardiovascular Disease; Visit Provider Internal Medicine Cardiovascular Disease
DX: R06.00 Dyspnea, unspecified (principal); R09.89 Other specified symptoms and signs involving the circulatory and respiratory systems; I35.0 Nonrheumatic aortic (valve) stenosis; I10 Essential (primary) hypertension; E78.2 Mixed hyperlipidemia; Z95.3 Presence of xenogenic heart valve; Z98.890 Other specified postprocedural states; I65.23 Occlusion and stenosis of bilateral carotid arteries
CPT/HCPCS: 36415; 80053; 84443; 85027

== ENCOUNTER → 2023-08-23 | Outpatient (CLI) | payer MEDICARE, SELFPAY ==
--- NOTE | 2023-08-23 12:21 | ECHOD_ITS ---
Reason For Study: DYSPNEA Procedure This was a 2D Doppler, Color Flow transthoracic echocardiogram. Exam performed in department. Left Ventricle Normal size and thickness. The left ventricular ejection fraction is 60 %. Normal diastology for age. Right Ventricle Normal right ventricle. Atria The left atrium is severely enlarged. Normal right atrium. Mitral Valve Mild (1+) mitral valve insufficiency. Tricuspid Valve Mild tricuspid valve insufficiency. Right ventricular systolic pressure estimated to be 39 mmHg. Aortic Valve Bioprosthetic aortic valve functioning normally. Pulmonic Valve The pulmonic valve is not well visualized. Great Vessels Normal sized aortic root. Pericardium/Pleural No pericardial effusion. MMode/2D Measurements & Calculations LVIDd: 4.6 cm IVSd: 0.84 cm LVOT diam: 2.0 cm LVIDs: 3.1 cm LVPWd: 0.84 cm LVOT area: 3.3 cm2 RVDd: 3.9 cm FS: 33.2 % Ao root diam: 3.1 cm LAV(MOD-bp): 38.7 ml LVAd ap4: 26.4 cm2 LAV(MOD-bp) Indexed: 20.7 ml/m2 LVLd ap4: 7.1 cm LAV(MOD-sp2): 36.2 ml EDV(MOD-sp4): 78.0 ml LAV(MOD-sp4): 40.7 ml EDV(sp4-el): 82.9 ml LVAs ap4: 14.3 cm2 LVLs ap4: 6.1 cm ESV(MOD-sp4): 27.9 ml ESV(sp4-el): 28.3 ml EF(MOD-sp4): 64.2 % EF(sp4-el): 65.9 % SV(MOD-sp4): 50.1 ml SV(sp4-el): 54.6 ml LA A4 area: 16.3 cm2 LA dimension(2D): 3.9 cm RA A4 area: 12.8 cm2 Time Measurements MV dec time: 0.21 sec Doppler Measurements & Calculations MV E max samuel: 77.8 cm/sec Lat Peak E' Samuel: 8.3 cm/sec Med Peak E' Samuel: 6.7 cm/sec MV A max samuel: 60.4 cm/sec E/E' lat: 9.3 E/E' med: 11.7 MV E/A: 1.3 Ao V2 max: 178.0 cm/sec LV V1 max: 111.8 cm/sec SV(LVOT): 94.7 ml Ao max P.7 mmHg LV V1 max P.0 mmHg Ao V2 mean: 119.4 cm/sec LV V1 mean P.9 mmHg Ao mean P.5 mmHg LV V1 mean: 79.6 cm/sec Ao V2 VTI: 41.4 cm LV V1 VTI: 29.0 cm AV (velocity ratio): 0.70 GEOVANI(I,D): 2.3 cm2 GEOVANI(V,D): 2.1 cm2 PA V2 max: 81.9 cm/sec TR max samuel: 268.4 cm/sec TR max P.8 mmHg ECHO/Echo Complete Interpretation Summary The left ventricular ejection fraction is 60 %. The left atrium is severely enlarged. Mild (1+) mitral valve insufficiency. Mild tricuspid valve insufficiency. Right ventricular systolic pressure estimated to be 39 mmHg. Bioprosthetic aortic valve functioning normally. Ordering Physician: Carlos Alexander Referring Physician: MUSTAPHA BORJA Performed By: Chiquis Porras RDCS
--- NOTE | 2023-08-23 12:21 | CDU_ITS ---
Reason For Study: lightheadedness Rt. Velocities/BP Lt. Velocities/BP Prox CCA 66.4/9.7 cm/sec. Prox CCA 70.2/12.6 cm/sec. Mid CCA 55.1/11.6 cm/sec. Mid CCA 64.5/14.5 cm/sec. Dist CCA 62.6/11.6 cm/sec. Dist CCA 55.1/8.8 cm/sec. Prox ICA 42.8/8.8 cm/sec. Prox ICA 54.2/12.4 cm/sec. Mid ICA 67.4/16.3 cm/sec. Mid ICA 56.4/16.8 cm/sec. Dist ICA 80.6/20.1 cm/sec. Dist ICA 93.8/25.6 cm/sec. Rt. ICA/CCA = 1.5. Lt. ICA/CCA = 1.5. Prox ECA 64.5/6.0 cm/sec. Prox ECA 90.5/4.7 cm/sec. Rt. Vert. 65.5/13.5 cm/sec. Lt. Vert. 29.6/7.8 cm/sec. Right Extracranial There is intimal thickening but no significant atherosclerotic plaque noted in the right common carotid artery. There is heterogeneous, irregular atherosclerotic plaque noted in the right internal carotid artery. There is heterogeneous, irregular atherosclerotic plaque noted in the right external carotid artery. Antegrade flow is noted in the right vertebral artery. Left Extracranial There is intimal thickening but no significant atherosclerotic plaque noted in the left common carotid artery. There is heterogeneous, irregular atherosclerotic plaque noted in the left internal carotid artery. The atherosclerotic plaque causes acoustic shadowing. There is intimal thickening but no significant atherosclerotic plaque noted in the left external carotid artery. Antegrade flow is noted in the left vertebral artery. Procedure Carotid Duplex [id number]. This is a Carotid Duplex examination using B-mode, color flow and specral Doppler. The exam was diagnostic. Exam performed in department. VL/Carotid Duplex Ultrasound Interpretation Summary Mild (<50%) stenosis right extracranial internal carotid. Mild (<50%) stenosis left extracranial internal carotid. Patent and antegrade vertebrals bilaterally. Ordering Physician: Carlos Alexander Performed By: Denzel English RVT
== END | disposition home or self-care (01) ==
PROVIDERS: PCP Internal Medicine; Referring Provider Internal Medicine Cardiovascular Disease; Visit Provider Internal Medicine Cardiovascular Disease
DX: I65.23 Occlusion and stenosis of bilateral carotid arteries (principal); R09.89 Other specified symptoms and signs involving the circulatory and respiratory systems; R06.00 Dyspnea, unspecified; E78.5 Hyperlipidemia, unspecified; I10 Essential (primary) hypertension; I35.0 Nonrheumatic aortic (valve) stenosis; Z95.3 Presence of xenogenic heart valve
CPT/HCPCS: 93306; 93880

== ENCOUNTER → 2024-01-31 | Outpatient (CLI) | payer MEDICARE, SELFPAY ==
[2024-01-31 11:30] LABS: Hematocrit 46.5 % (40-54); Hemoglobin 15.2 g/dL (13.0-16.5); Mean Corp Hgb Conc 32.7 g/dL (32-36); Mean Corpuscular Volume 88.6 fL (80-94); Mean Platelet Vol. 10.7 fl (6.2-12.0); Platelet Count 214 K/mm3 (150-450); RBC Distribution Width CV 13.7 % (11.6-14.6); RBC Distribution Width SD 44.6 fl (35.1-43.9); Red Blood Count 5.25 M/mm3 (4.6-6.2); White Blood Count 7.1 K/mm3 (4.4-11.0)
[2024-01-31 11:55] LABS: AST(SGOT) 41 U/L (15-37); Alanine Aminotransfer ALT/SGPT 42 U/L (16-61); Albumin, Serum 3.9 g/dL (3.2-5.0); Alkaline Phosphatase 69 U/L (45-117); Anion Gap 5 (5-15); BUN 14 mg/dL (7-18); BUN/Creat Ratio 13.1 RATIO (10-20); Calcium,Total 9.3 mg/dL (8.5-10.1); Chloride 107 mmol/L (98-107); Creatinine, Serum 1.07 mg/dL (0.70-1.30); EST Glomerular Filtration Rate 71 mL/min (>60); Est Glom Filt Rate - Afr Amer 85 mL/min (>60); Globulin 3.9 g/dL (2.2-4.2); Glucose 108 mg/dL (74-106); Potassium 4.1 mmol/L (3.5-5.1); Protein, Total 7.8 g/dL (6.4-8.2); Sodium Level 138 mmol/L (136-145)
== END | disposition home or self-care (01) ==
LOC: LAB 11:14
PROVIDERS: PCP Internal Medicine; Referring Provider Internal Medicine Cardiovascular Disease; Visit Provider Internal Medicine Cardiovascular Disease
DX: I10 Essential (primary) hypertension (principal); R53.83 Other fatigue; R06.00 Dyspnea, unspecified; I25.10 Atherosclerotic heart disease of native coronary artery without angina pectoris
CPT/HCPCS: 36415; 80053; 85027

== ENCOUNTER → 2024-02-07 | Outpatient (CLI) | payer MEDICARE, SELFPAY ==
[2024-02-07 11:14] LABS: Anion Gap 9 (5-15); BUN 17 mg/dL (7-18); BUN/Creat Ratio 15.5 RATIO (10-20); Calcium,Total 9.3 mg/dL (8.5-10.1); Chloride 105 mmol/L (98-107); Cholesterol 168 mg/dL (200); EST Glomerular Filtration Rate 68 mL/min (>60); Est Glom Filt Rate - Afr Amer 83 mL/min (>60); Glucose 103 mg/dL (74-106); High Density Lipoprotein 60 mg/dL; Potassium 4.2 mmol/L (3.5-5.1); Sodium Level 138 mmol/L (136-145); Triglycerides 130 mg/dL; Very Low Density Lipoprotein 26 mg/dL (5-40)
== END | disposition home or self-care (01) ==
LOC: LAB 08:54
PROVIDERS: PCP Internal Medicine; Referring Provider Internal Medicine Cardiovascular Disease; Visit Provider Internal Medicine Cardiovascular Disease
DX: E78.2 Mixed hyperlipidemia (principal); I25.10 Atherosclerotic heart disease of native coronary artery without angina pectoris; R53.83 Other fatigue; R06.00 Dyspnea, unspecified; I10 Essential (primary) hypertension
CPT/HCPCS: 36415; 80048; 80061

== ENCOUNTER → 2024-09-05 | Outpatient (CLI) | payer MEDICARE, SELFPAY ==
[2024-09-05 13:55] LABS: ALB/GLOB Ratio 1.1 RATIO (0.9-2.4); AST(SGOT) 24 U/L (15-37); Alanine Aminotransfer ALT/SGPT 35 U/L (16-61); Albumin, Serum 3.9 g/dL (3.2-5.0); Alkaline Phosphatase 73 U/L (45-117); Anion Gap 4 (5-15); BUN 15 mg/dL (7-18); BUN/Creat Ratio 15.1 RATIO (10-20); Calcium,Total 9.2 mg/dL (8.5-10.1); Chloride 107 mmol/L (98-107); Cholesterol 157 mg/dL (200); Creatinine, Serum 0.99 mg/dL (0.70-1.30); EST Glomerular Filtration Rate 77 mL/min (>60); Est Glom Filt Rate - Afr Amer 93 mL/min (>60); Globulin 3.6 g/dL (2.2-4.2); Glucose 119 mg/dL (74-106); High Density Lipoprotein 66 mg/dL; Potassium 3.9 mmol/L (3.5-5.1); Protein, Total 7.5 g/dL (6.4-8.2); Sodium Level 138 mmol/L (136-145); Triglycerides 106 mg/dL; Very Low Density Lipoprotein 21 mg/dL (5-40)
== END | disposition home or self-care (01) ==
PROVIDERS: PCP Internal Medicine; Referring Provider Internal Medicine Cardiovascular Disease; Visit Provider Internal Medicine Cardiovascular Disease
DX: E78.5 Hyperlipidemia, unspecified (principal); R06.00 Dyspnea, unspecified; R53.83 Other fatigue
CPT/HCPCS: 36415; 80053; 80061

== ENCOUNTER → 2024-09-10 | Outpatient (CLI) | payer MEDICARE, SELFPAY ==
--- NOTE | 2024-09-10 10:24 | ECHOD_ITS ---
Reason For Study: DYSPNEA/SOB Procedure This was a 2D Doppler, Color Flow transthoracic echocardiogram. Exam performed in department. Left Ventricle Normal left ventricular thickness. The left ventricular ejection fraction is 65 %. Diastolic function is indeterminate. Right Ventricle Normal right ventricle. Atria The left atrium is moderately enlarged. The right atrium is mildly enlarged. Mitral Valve Mild (1+) mitral valve insufficiency. Tricuspid Valve Mild to moderate (1-2+) tricuspid valve insufficiency. Right ventricular systolic pressure estimated to be 47 mmHg. Aortic Valve Bioprosthetic aortic valve functioning normally. Pulmonic Valve The pulmonic valve is not well visualized. Trivial pulmonic valve insufficiency. Great Vessels Normal sized aortic root. Pericardium/Pleural No pericardial effusion. MMode/2D Measurements & Calculations LVIDd: 4.3 cm IVSd: 1.0 cm LVOT diam: 2.0 cm LVIDs: 3.0 cm LVPWd: 1.0 cm LVOT area: 3.2 cm2 RVDd: 3.4 cm FS: 31.6 % Ao root diam: 3.1 cm LAV(MOD-bp): 46.1 ml LVAd ap4: 24.8 cm2 LAV(MOD-bp) Indexed: 24.8 ml/m2 LVLd ap4: 7.2 cm LAV(MOD-sp2): 47.3 ml EDV(MOD-sp4): 70.1 ml LAV(MOD-sp4): 44.4 ml EDV(sp4-el): 72.3 ml LVAs ap4: 13.5 cm2 LVLs ap4: 6.1 cm ESV(MOD-sp4): 25.3 ml ESV(sp4-el): 25.2 ml EF(MOD-sp4): 63.9 % EF(sp4-el): 65.2 % SV(MOD-sp4): 44.8 ml SV(sp4-el): 47.1 ml LA A4 area: 17.5 cm2 SI(MOD-sp4): 24.1 ml/m2 LA dimension(2D): 3.5 cm RA A4 area: 13.9 cm2 TAPSE: 1.8 cm Time Measurements MV dec time: 0.24 sec Doppler Measurements & Calculations MV E max samuel: 85.0 cm/sec Lat Peak E' Samuel: 9.0 cm/sec Med Peak E' Samuel: 6.9 cm/sec MV A max samuel: 64.5 cm/sec E/E' lat: 9.5 E/E' med: 12.3 MV E/A: 1.3 Ao V2 max: 202.3 cm/sec LV V1 max: 131.7 cm/sec SV(LVOT): 118.3 ml Ao max P.4 mmHg LV V1 max P.9 mmHg Ao V2 mean: 138.3 cm/sec LV V1 mean P.1 mmHg Ao mean P.5 mmHg LV V1 mean: 95.6 cm/sec Ao V2 VTI: 51.3 cm LV V1 VTI: 36.7 cm AV (velocity ratio): 0.72 GEOVANI(I,D): 2.3 cm2 GEOVANI(V,D): 2.1 cm2 PA V2 max: 99.7 cm/sec TR max samuel: 283.9 cm/sec TR max P.2 mmHg ECHO/Echo Complete Interpretation Summary The left ventricular ejection fraction is 65 %. Diastolic function is indeterminate. The left atrium is moderately enlarged. The right atrium is mildly enlarged. Mild (1+) mitral valve insufficiency. Mild to moderate (1-2+) tricuspid valve insufficiency. Right ventricular systolic pressure estimated to be 47 mmHg. Bioprosthetic aortic valve functioning normally. Ordering Physician: Carlos Alexander Referring Physician: MUSTAPHA BORJA Performed By: Chiquis Porras RDCS
== END | disposition home or self-care (01) ==
PROVIDERS: PCP Internal Medicine; Referring Provider Internal Medicine Cardiovascular Disease; Visit Provider Internal Medicine Cardiovascular Disease
DX: R06.09 Other forms of dyspnea (principal); R53.83 Other fatigue; I35.0 Nonrheumatic aortic (valve) stenosis
CPT/HCPCS: 93306

== ENCOUNTER → 2024-11-28 | Outpatient (CLI) | payer MEDICARE, SELFPAY ==
--- NOTE | 2024-11-28 16:03 | RAD_ITS ---
PROCEDURE: CHEST PA AND LATERAL 11/28/2024 REASON FOR EXAM: ABNORMAL LUNG SOUNDS TECHNIQUE: Frontal and lateral views of the chest. COMPARISON: None FINDINGS: Hardware: Status post median sternotomy and aortic valve replacement. Heart: The heart size is normal. Mediastinum: The mediastinal contour is unremarkable. Lungs: No focal consolidation. No pneumothorax. No pleural effusion. Bones: Degenerative changes are identified within the thoracic spine. RAD/Chest PA and Lateral IMPRESSION: NO ACUTE FINDINGS. Reading Location: [facility]
== END | disposition home or self-care (01) ==
LOC: MTRAD 16:02
PROVIDERS: PCP Internal Medicine; Referring Provider Nurse Practitioner Family; Visit Provider Nurse Practitioner Family
DX: R09.89 Other specified symptoms and signs involving the circulatory and respiratory systems (principal)
CPT/HCPCS: 71046

== ENCOUNTER → 2025-03-04 | Outpatient (CLI) | payer MEDICARE, SELFPAY ==
--- NOTE | 2025-03-04 10:47 | CDU_ITS ---
Reason For Study Reason For Study: Carotid artery disease Rt. Velocities/BP Lt. Velocities/BP Prox CCA 88.8/7.7 cm/sec. Prox CCA 74/11.4 cm/sec. Mid CCA 71.1/9.7 cm/sec. Mid CCA 74/12.6 cm/sec. Dist CCA 49.4/10.7 cm/sec. Dist CCA 67.9/10.2 cm/sec. Prox ICA 58.1/13.9 cm/sec. Prox ICA 43.3/9 cm/sec. Mid ICA 74/11.4 cm/sec. Mid ICA 80.2/16.3 cm/sec. Dist ICA 57.4/13.1 cm/sec. Dist ICA 75.3/12.6 cm/sec. Rt. ICA/CCA = 1.04. Lt. ICA/CCA = 1.08. Prox ECA 144.8/6 cm/sec. Prox ECA 88.8/5.3 cm/sec. Rt. Vert. 61.8/12.6 cm/sec. Lt. Vert. 65.4/9.7 cm/sec. Right Extracranial There is intimal thickening but no significant atherosclerotic plaque noted in the right common carotid artery. There is heterogeneous, irregular atherosclerotic plaque noted in the right internal carotid artery. There is intimal thickening but no significant atherosclerotic plaque noted in the right external carotid artery. Antegrade flow is noted in the right vertebral artery. Left Extracranial There is intimal thickening but no significant atherosclerotic plaque noted in the left common carotid artery. There is heterogeneous, irregular atherosclerotic plaque noted in the left internal carotid artery. There is intimal thickening but no significant atherosclerotic plaque noted in the left external carotid artery. Antegrade flow is noted in the left vertebral artery. Procedure Carotid Duplex [id number]. This is a Carotid Duplex examination using B-mode, color flow and specral Doppler. Exam performed in department. VL/Carotid Duplex Ultrasound Interpretation Summary Mild (<50%) stenosis right extracranial internal carotid. Mild (<50%) stenosis left extracranial internal carotid. Patent and antegrade vertebrals bilaterally. Ordering Physician: aRs Cheung Referring Physician: Cady Diaz M.D. Performed By: Kristine Muñoz RVT
--- NOTE | 2025-03-04 10:47 | CDU_ITS ---
Reason For Study Reason For Study: Carotid artery disease Rt. Velocities/BP Lt. Velocities/BP Prox CCA 88.8/7.7 cm/sec. Prox CCA 74/11.4 cm/sec. Mid CCA 71.1/9.7 cm/sec. Mid CCA 74/12.6 cm/sec. Dist CCA 49.4/10.7 cm/sec. Dist CCA 67.9/10.2 cm/sec. Prox ICA 58.1/13.9 cm/sec. Prox ICA 43.3/9 cm/sec. Mid ICA 74/11.4 cm/sec. Mid ICA 80.2/16.3 cm/sec. Dist ICA 57.4/13.1 cm/sec. Dist ICA 75.3/12.6 cm/sec. Rt. ICA/CCA = 1.04. Lt. ICA/CCA = 1.08. Prox ECA 144.8/6 cm/sec. Prox ECA 88.8/5.3 cm/sec. Rt. Vert. 61.8/12.6 cm/sec. Lt. Vert. 65.4/9.7 cm/sec. Right Extracranial There is intimal thickening but no significant atherosclerotic plaque noted in the right common carotid artery. There is heterogeneous, irregular atherosclerotic plaque noted in the right internal carotid artery. There is intimal thickening but no significant atherosclerotic plaque noted in the right external carotid artery. Antegrade flow is noted in the right vertebral artery. Left Extracranial There is intimal thickening but no significant atherosclerotic plaque noted in the left common carotid artery. There is heterogeneous, irregular atherosclerotic plaque noted in the left internal carotid artery. There is intimal thickening but no significant atherosclerotic plaque noted in the left external carotid artery. Antegrade flow is noted in the left vertebral artery. Procedure Carotid Duplex [id number]. This is a Carotid Duplex examination using B-mode, color flow and specral Doppler. Exam performed in department. VL/Carotid Duplex Ultrasound Interpretation Summary Mild (<50%) stenosis right extracranial internal carotid. Mild (<50%) stenosis left extracranial internal carotid. Patent and antegrade vertebrals bilaterally. Ordering Physician: Ras Cheung Referring Physician: Cady Diaz M.D. Performed By: Kristine Muñoz RVT
== END | disposition home or self-care (01) ==
LOC: CVS 10:46
PROVIDERS: PCP Internal Medicine; Referring Provider Nurse Practitioner Family; Visit Provider Nurse Practitioner Family
DX: I65.23 Occlusion and stenosis of bilateral carotid arteries (principal)
CPT/HCPCS: 93880